=== PATIENT | male | born 1950 | race Hispanic/Latino ===

== ENCOUNTER 2024-11-27 06:02 | Observation (INO) | payer OTHER ==
[2024-11-24 09:34] LABS: IMMATURE GRANULOCYTE ABSOLUTE 0.02 K/uL (0-1); NUCLEATED RED BLOOD CELLS 0.0 % (0.0-0.19); PLATELET COUNT (AUTO) 308 K/uL (130-400); RED BLOOD CELL COUNT(AUTO) 4.70 MIL/uL (4.50-6.20); RED CELL DISTRIBUTION WIDTH 15.3 % (11.0-15.5); WHITE BLOOD COUNT (AUTO) 6.3 K/uL (4.8-10.8)
--- NOTE | 2024-11-24 09:34 | EKG ---
[facility] Test Date: 2024-11-24 Test Time: 09:15:13 Pat Name: SAEED CHARLES Department: [facility] Room: 414 Gender: M Nursing Clinical Director: [id number] : 1950 Requested By: JOSHUA MARTINEZ Order Number: [id number] Reading MD: John Brito Measurements Intervals [place] Rate: 91 P: 34 RI: 209 QRS: 3 QRSD: 100 T: 40 QT: 351 QTc: 433 Interpretive Statements Sinus rhythm Borderline prolonged RI interval No previous ECG available for comparison Electronically Signed On 11-30-2024 10:17:56 CDT by John Brito Please click the below link to view image of tracing.
[2024-11-24 09:37] LABS: APPEARANCE,URINE CLEAR (CLEAR); GLUCOSE, URINE (UA) NEGATIVE (NEGATIVE); LEUKOCYTE ESTERASE ,URINE NEGATIVE Leu/uL (NEGATIVE); NITRATE,URINE NEGATIVE (NEGATIVE); OCCULT BLOOD,URINE NEGATIVE (NEGATIVE)
[2024-11-24 09:38] LABS: ADD UA MICROSCOPIC NO
[2024-11-24 09:44] LABS: CREATININE 1.1 mg/dL (0.5-1.3); GLOMERULAR FILTR. RATE CALC 70.0 mL/min (>90); GLUCOSE,RANDOM 137.0 mg/dL (70-105); SODIUM SERUM 136.0 mmol/L (136-145); UREA NITROGEN, BLOOD 26.0 mg/dL (7-18)
[2024-11-24 09:47] LABS: INR 1.04 (0.85-1.15)
[2024-11-24 10:07] VITALS: BP 135/65; PULSE 88; RESP 16; TEMP 97.4
--- NOTE | 2024-11-25 16:22 | NUR ---
REPORT REPORTED EKG TO DR MCNEIL. OK TO PROCEED
[2024-11-27] VITALS (26 sets, daily range): BP systolic 123–185; BP diastolic 55–80; PULSE 65–80; RESP 15–19; TEMP 97.1–98.4; O2SAT 96
[~2024-11-27] VITALS: Ht 172.7 cm; Wt 90.8 kg
[~2024-11-27 06:02] MED LIST: GABA-529 PO; GLIP1TAB6 PO; LISI1TAB53 PO; MORPHINE PUMP ITH; OMEP20CA12 PO; ROSU10TA72 PO; TAMS-55 PO; [UNRECOGNIZED DRUG - OTHER] PO
[2024-11-27] MEDS ORDERED: VANCOMYCIN 1G/250ML KIT 250 ML IV ONE (07:21)
[2024-11-27] MEDS ORDERED: GLYCOPYRROLATE 0.2 MG/ML 5 ML VIAL ONE (07:39)
[2024-11-27] MEDS ORDERED: LIDOCAINE PF 100MG/5ML (2%) SYRINGE 5ML ONE (07:39)
[2024-11-27] MEDS ORDERED: NEOSTIGMINE METHYLSULFATE 1MG/ML IV ONE (07:40)
[2024-11-27] MEDS ORDERED: MIDAZOLAM HCL 1 MG/ML 2ML VIAL ONE (07:46)
[2024-11-27] MEDS: 0.9%NACL 1000ML 1,000 ML IV ONE (07:57)
[2024-11-27] MEDS: methylPREDNISolone aceTATE 40 MG/ML VIAL ONE (08:40)
[2024-11-27] MEDS: THROMBIN-JMI 20000 UNIT KIT TP ONE (08:42)
[2024-11-27] MEDS: TRANEXAMIC ACID 1000MG/10ML ONE (08:44)
--- NOTE | 2024-11-27 15:00 | NUR ---
PT ARRIVED TO FLOOR SP REMOVAL OF COLUMN STIMULATOR, DRESSINGS ON BACK DRY AND INTACT. PT DENIES ANY PAIN AT THE MOMENT. SON AT BEDSIDE. BED POSITION TO LOWEST POSITION CALL LIGHT WITH IN REACH. PT RESTING COMFORTABLE IN BED.
--- NOTE | 2024-11-27 15:18 | OP ---
DATE OF PROCEDURE: 11/27/2024 INDICATIONS: The patient is a 74-year-old patient who has had history of chronic pain syndrome, post-laminectomy syndrome who had dorsal column stimulator implanted in the past more than 4 years ago. At this time, he has not achieved any improvement and the apparatus is not working properly for him, for which he has elected to have it removed. PREOPERATIVE DIAGNOSES: Chronic pain syndrome, post-laminectomy syndrome, malfunctioning device. SURGEON: Jeferson Diego M.D. ANESTHESIA: General. The patient tolerated procedure well. COMPLICATIONS: There are no complications. PROCEDURE: Removal through laminectomy, thoracic epidural leads and removal of battery pack. ESTIMATED BLOOD LOSS: Less than 100 mL. DESCRIPTION OF PROCEDURE: The patient was brought to the operating room, adequate general endotracheal anesthesia was achieved. IV antibiotics were given. Thereafter, the patient underwent placement of DVT garments and the needles for the EMG, SSEP and positioned prone with adequate padding to all pressure area. The back was extensively prepped and draped in the usual sterile fashion. The prior midline incision in the upper thoracic spine was opened with blade, bipolar coagulation. Today, we followed the leads and thereafter, the area of the laminotomy was rechecked, but there was some bony encasement, so I used the Adson rongeur, then the drill. Bovie was used to achieve hemostasis. The upward curette and Kerrison rongeur #2 and #3 to remove this bone and span the laminotomy and thereafter, I was able to free the lead after we opened the bottom incision in the left buttock where the battery was with blade, bipolar coagulation. The cables were disengaged from the battery and I was able to remove the cables. X-rays were taken, verifying the removal of the battery as well as the epidural leads. Copious irrigation was done with bacteriostatic solution, Marcaine into the paraspinal muscles, which the wounds were closed by anatomical layer, Vicryl 1, Vicryl 2, subcutaneous as well and subcuticular stitch and Dermabond for the skin. The patient tolerated the procedure well with no complications. Family members were addressed. TID: [id number] RECEIPT: [id number]
[2024-11-27] MEDS: 0.9%NACL 1000ML 1,000 ML IV SCH (18:51)
--- NOTE | 2024-11-27 20:00 | NUR ---
assessment/teaching patient awake, alert, ox3, no sob, no c/o pain, teach patient deep breathing exercises, ivf infusing well, teach patient plan of care , pain management and expected outcome, patient verbalizes understanding via teach back
[2024-11-28] VITALS: BP 146/64; PULSE 68; RESP 18; TEMP 97.8
[2024-11-28 03:50] VITALS: BP 133/62; PULSE 64; RESP 17; TEMP 97.6
[2024-11-28 08:00] VITALS: BP 140/82; PULSE 80; RESP 18; TEMP 98.4; O2SAT 98
[2024-11-28 12:00] VITALS: BP 156/79; PULSE 80; RESP 18; TEMP 98.4
--- NOTE | 2024-11-28 13:38 | NUR ---
AMA patient requesting to leave against medical advice, "my doctor said I was going to leave today, I am not waiting". advised the patient I did not have an order yet to discharge, but would attempt to contact the provider. attempted to contact Dr. León, but no response at 13:00, received a call back 10 minutes later, but patient had already signed AMA form. Educated patient of risks of leaving against medical advice, patient signed AMA form and understood the risks. Dr. León aware.
--- NOTE | 2024-12-04 14:09 | HMCIMG ---
Intraoperative fluoroscopic assessment of the removal of spinal nerve stimulator INDICATION: Removal of spinal nerve stimulator COMPARISON: 3 radiographs dated 11/27/2024 Fluoroscopy time: 4.8 seconds. FINDINGS: 3 images demonstrate patient undergoing removal of the spinal nerve stimulator IMPRESSION: Details of the finding in the procedure finding.
== END 2024-11-28 14:00 | disposition home or self-care (01) ==
LOC: DAH 06:02 → DAHIP 06:03 → 4CH 15:00
PROVIDERS: ADMIT Neurological Surgery; ATTEND Neurological Surgery
DX: M96.1 Postlaminectomy syndrome, not elsewhere classified (principal); M51.26 Other intervertebral disc displacement, lumbar region; G89.29 Other chronic pain; T85.113A Breakdown (mechanical) of implanted electronic neurostimulator, generator, initial encounter; T85.840A Pain due to nervous system prosthetic devices, implants and grafts, initial encounter; I10 Essential (primary) hypertension; E78.5 Hyperlipidemia, unspecified; K21.9 Gastro-esophageal reflux disease without esophagitis; Z79.899 Other long term (current) drug therapy; Z98.890 Other specified postprocedural states; Y92.89 Other specified places as the place of occurrence of the external cause
CPT/HCPCS: 80048; 85025; 85610; 85730; 86850 ×2; 86900 ×2; 86901 ×2; 81003; 36415 ×2; 93005; 63662; 63688; 96374; 82948 ×5; 72020; G0378 ×27; A4510; A4663; A4649 ×3; A4606; J3010 ×4; J3490 ×6; J7030; J0665 ×2; J2003; J2250; J2704; J2710; J1010; J3373; J3260; J1171; J0690; A4930 ×2; A6010; A4215; A4223 ×2; A4222; A4221; A4216; A4600